=== PATIENT | female | born 1945 | race Caucasian/White ===

== ENCOUNTER 2016-10-15 15:09 | Emergency (ER) | payer OTHER ==
[2016-10-15 15:17] VITALS: BP 144/70; PULSE 74; TEMP 98.4; BMI 25.8
[2016-10-15] MEDS ORDERED: KETOROLAC TROMETHAMINE 30 MG/1 ML VIAL IM ONE (15:27)
[2016-10-15] MEDS ORDERED: KETOROLAC TROMETHAMINE 30 MG/1 ML VIAL ONE (15:34)
--- NOTE | 2016-10-15 15:35 | PDOC ---
History of Present Illness - General Chief Complaint: Pain, Acute Stated Complaint: LOW BACK PAIN Time Seen by Provider: 10/15/16 15:15 History Source: Patient Exam Limitations: No Limitations - History of Present Illness Initial Comments: 10/15/16 15:28 70 yo F with no pmhx here with /co low back painl left sided. flank. radiates down to her hip. started 4 weeks ago after went bowling. then yeterday was reaching, suddently got a spasm . no new weakness or numbness. no bowel or bladder dysfunction. pain worse with certain movement and bending. was taking aleve, and motrin 400 mg minimal relief. did see a chiropracter, no improvement. Past History - Past Medical History Allergies/Adverse Reactions: Allergies Allergy/AdvReac Type Severity Reaction Status Date / Time No Known Allergies Allergy Verified 10/15/16 15:10 Home Medications: Ambulatory Orders Diazepam [Valium] 5 mg PO Q8H PRN #15 tablet MDD 3 10/15/16 Ibuprofen [Motrin -] 600 mg PO TID PRN #60 tablet MDD 3 10/15/16 Other medical history: BREAST CANCER - Surgical History Appendectomy: Yes - Psycho/Social/Smoking Cessation Hx Suicidal Ideation: No Smoking History: Never smoked Hx Alcohol Use: Yes Drug/Substance Use Hx: No Substance Use Type: Alcohol Review of Systems - Review of Systems Constitutional: No: Chills, Diaphoresis HEENTM: No: Blurred Vision Cardiac (ROS): No: Chest Pain, Edema : No: Burning, Dysuria Musculoskeletal: Yes: Back Pain. No: Muscle Weakness Neurological: No: Numbness, Weakness All Other Systems: Reviewed and Negative *Physical Exam - Vital Signs Last Vital Signs Temp Pulse Resp BP Pulse Ox 98.4 F 74 18 144/70 100 10/15/16 15:10 10/15/16 15:10 10/15/16 15:10 10/15/16 15:10 10/15/16 15:10 - Physical Exam General Appearance: Yes: Appropriately Dressed Neck: positive: Trachea midline Respiratory/Chest: positive: Lungs Clear, Normal Breath Sounds. negative: Respiratory Distress Cardiovascular: positive: Regular Rhythm, Regular Rate, S1, S2. negative: Edema , JVD Gastrointestinal/Abdominal: positive: Normal Bowel Sounds, Flat, Soft. negative : Increased Bowel Sounds Musculoskeletal: positive: Normal Inspection, Muscle Spasm, Other (left paraspinal m spasm, no midline v body tendernss. ). negative: CVA Tenderness, Vertebral Tenderness Neurologic: positive: Fully Oriented, Alert, Normal Mood/Affect, Motor Strength 5/5, Other (5/5 bilat lower extremity strength, hip flex/ ext, knee flex / ext, DF / PF, sensation intact throughout. ) Medical Decision Making - Medical Decision Making 10/15/16 15:31 70 yo with low back strain, normal nuero exam. plan continued nsaids, and muscle relaxer pcp fu. *DC/Admit/Observation/Transfer Diagnosis at time of Disposition: Low back strain - Discharge Dispostion Disposition: HOME Condition at time of disposition: Improved Admit: No - Prescriptions Prescriptions: Ibuprofen [Motrin -] 600 mg PO TID PRN #60 tablet MDD 3 PRN Reason: Pain Diazepam [Valium] 5 mg PO Q8H PRN #15 tablet MDD 3 PRN Reason: Muscle Spasms - Patient Instructions Printed Discharge Instructions: DI for Back Strain or Sprain Additional Instructions: no heavy lifting for one week you should follow up with your primary doctor to discuss physical therapy. take ibuprofen 600 mg very 8 hours as needed for pain. take valium 5 mg every 8 hours as needed for muscle spasm. return for weakness, numbness or any bowel or bladder problems fever or any concerns. do not mix valium with alcohol. do not take before driving.
== END 2016-10-15 15:44 | disposition home or self-care (01) ==
LOC: FER 15:09
DX: S39.012A Strain of muscle, fascia and tendon of lower back, initial encounter (principal); X58.XXXA Exposure to other specified factors, initial encounter; Y93.9 Activity, unspecified; Y92.9 Unspecified place or not applicable
CPT/HCPCS: 99282-25

== ENCOUNTER 2018-02-02 08:29 | Emergency (ER) | payer OTHER ==
[2018-02-02 08:57] VITALS: BP 129/61; PULSE 83; TEMP 97.4; BMI 25.8
--- NOTE | 2018-02-02 09:00 | PDOC ---
History of Present Illness - General Chief Complaint: Back Pain Stated Complaint: R/O STONES Time Seen by Provider: 02/02/18 09:00 History Source: Patient Exam Limitations: No Limitations - History of Present Illness Initial Comments: 02/02/18 09:17 72 year old female with PMH kidney stone (30 years ago) and chronic low back pain presented to ED for left low back pain since 0500 today. She admitted to urinary urgency and increased urinary frequency since yesterday and chills. She stated she had 5 episodes of diarrhea yesterday, loose orange/brown. She denied fever, chest pain, shortness of breath, abdominal pain, bowel or bladder incontinence, numbness/tingling, hematuria, blood in stool. Allergies: NKDA Past History - Past Medical History Allergies/Adverse Reactions: Allergies Allergy/AdvReac Type Severity Reaction Status Date / Time No Known Allergies Allergy Verified 02/02/18 08:57 Home Medications: Ambulatory Orders Diazepam [Valium] 5 mg PO Q8H PRN #15 tablet MDD 3 10/15/16 Ibuprofen [Motrin -] 600 mg PO TID PRN #60 tablet MDD 3 10/15/16 Oxycodone HCl/Acetaminophen [Percocet 5-325 mg Tablet] 1 tab PO Q6H PRN #12 tablet MDD 4 tabs 02/02/18 Tamsulosin HCl [Flomax] 0.4 mg PO DAILY #7 capsule 02/02/18 COPD: No CHF: No Disorders: Yes (kidney stones) - Surgical History Appendectomy: Yes - Suicide/Smoking/Psychosocial Hx Smoking History: Never smoked Have you smoked in the past 12 months: No Information on smoking cessation initiated: No Hx Alcohol Use: No Drug/Substance Use Hx: No Substance Use Type: Alcohol Review of Systems - Review of Systems Able to Perform ROS?: Yes Comments:: 02/02/18 09:22 General: admitted to chills. denied fever, night sweats, generalized weakness. HEENT: denied sore throat, rhinorrhea, ear pain. Heart: denied chest pain, palpitations, syncope, lower extremity swelling, diaphoresis. Respiratory: denied shortness of breath, cough, sputum production, hemoptysis. Abdomen: admitted to nausea, vomiting, diarrhea. denied abdominal pain, constipation, blood in stool, bowel incontinence. : admitte to increased urinary frequency, urinary urgency. denied dysuria, hematuria, urinary incontinence. Back: admitted to back pain. Musculoskeletal: denied joint pain, joint swelling. Neurological: denied headache, dizziness, numbness, tingling, weakness. Skin: denied rash, laceration, abrasion. *Physical Exam - Vital Signs Last Vital Signs Temp Pulse Resp BP Pulse Ox 97.4 F L 83 16 129/61 100 02/02/18 08:35 02/02/18 08:35 02/02/18 08:35 02/02/18 08:35 02/02/18 08:35 - Physical Exam Comments: 02/02/18 09:23 Constitutional: Well-nourished, Well-developed, appearing stated age. HEENT: head is normocephalic, atraumatic. EOMI. PERRLA. Neck: supple. Full ROM. Heart: regular rhythm. no murmurs, rubs or gallops. Lungs: clear to auscultation bilaterally. no crackles, rhonchi or wheezing. no stridor. Abdomen: soft, nontender. normal bowel sounds. no rebound, guarding, masses. Back: no tenderness to palpation of low back bilaterally. no CVA tenderness bilaterally. Straight leg testing negative bilaterally. Extremities: Peripheral pulses intact. No lower extremity edema. Neurological: CN 2-12 grossly intact. Moves all four extremities. normal gait. ambulates well unassisted. Psych: awake, alert, oriented x3. Follows commands. Answers questions appropriately. ED Treatment Course - LABORATORY CBC & Chemistry Diagram: 02/02/18 09:38 02/02/18 09:38 Medical Decision Making - Medical Decision Making 02/02/18 09:56 72 year old female with PMH kidney stone (30 years ago) and chronic low back pain presented to ED for left low back pain associated with nausea, one episode of vomiting, increased urinary frequency, urinary urge, chills. Back pain currently 10/19. Initial Vital Signs Temp Pulse Resp BP Pulse Ox 97.4 F L 83 16 129/61 100 02/02/18 08:35 02/02/18 08:35 02/02/18 08:35 02/02/18 08:35 02/02/18 08:35 Afebrile. No tachycardia. No tachypnea. No hypertension. No hypoxia on room air. EKG performed at 1015: rate 86, regular rhythm, normal axis, normal intervals, nonspecific ST changes. Pending CBC, CMP, UA/UC, CT abdomen pelvis for evaluation of possible nephrolithiasis, UTI, diverticulitis, AAA. Pending EKG, cardiac enzymes, chest X-ray for evaluation of possible cardiopulmonary pathology. Toradol ordered for pain. Zofran ordered for nausea. 1L normal saline bolus ordered for hydration. 02/02/18 10:48 CT report: left 4mm partially obstructing renal stone at the UVJ with associated moderate hydronephrosis, hydroureter and perinephric and periureteral stranding. Flomax ordered. CXR report: negative for acute chest pathology. Pt reassessed, reported back pain improved, currently 05/19. CBC WBC 11.6 K/mm3 (4.0-10.0) H 02/02/18 09:38 RBC 4.48 M/mm3 (3.60-5.2) 02/02/18 09:38 Hgb 13.6 GM/dL (10.7-15.3) 02/02/18 09:38 Hct 38.8 % (32.4-45.2) 02/02/18 09:38 MCV 86.5 fl (80-96) 02/02/18 09:38 MCH 30.3 pg (25.7-33.7) 02/02/18 09:38 MCHC 35.0 g/dl (32.0-36.0) 02/02/18 09:38 RDW 12.8 % (11.6-15.6) 02/02/18 09:38 Plt Count 247 K/MM3 (134-434) 02/02/18 09:38 MPV 10.0 fl (7.5-11.1) 02/02/18 09:38 Absolute Neuts (auto) 9.4 K/mm3 (1.5-8.0) H 02/02/18 09:38 Neutrophils % 80.6 % (42.8-82.8) 02/02/18 09:38 Lymphocytes % 13.6 % (8-40) D 02/02/18 09:38 Monocytes % 5.2 % (3.8-10.2) 02/02/18 09:38 Eosinophils % 0.2 % (0-4.5) D 02/02/18 09:38 Basophils % 0.4 % (0-2.0) 02/02/18 09:38 Nucleated RBC % 0 % (0-0) 02/02/18 09:38 Mild leukocytosis. No anemia. CMP Sodium 140 mmol/L (136-145) 02/02/18 09:38 Potassium 3.8 mmol/L (3.5-5.1) 02/02/18 09:38 Chloride 105 mmol/L (98-107) 02/02/18 09:38 Carbon Dioxide 22 mmol/L (21-32) 02/02/18 09:38 Anion Gap 13 MMOL/L (8-16) 02/02/18 09:38 BUN 13 mg/dL (7-18) 02/02/18 09:38 Creatinine 1.0 mg/dL (0.55-1.3) 02/02/18 09:38 Creat Clearance w eGFR 54.50 (>60) 02/02/18 09:38 Random Glucose 142 mg/dL (74-106) H 02/02/18 09:38 Calcium 8.9 mg/dL (8.5-10.1) 02/02/18 09:38 Total Bilirubin 0.5 mg/dL (0.2-1) 02/02/18 09:38 AST 19 U/L (15-37) 02/02/18 09:38 ALT 25 U/L (13-61) 02/02/18 09:38 Alkaline Phosphatase 42 U/L (45-117) L 02/02/18 09:38 Creatine Kinase 92 IU/L (26-192) 02/02/18 09:38 Troponin I < 0.02 ng/ml (0.00-0.05) 02/02/18 09:38 Total Protein 7.2 g/dl (6.4-8.2) 02/02/18 09:38 Albumin 3.8 g/dl (3.4-5.0) 02/02/18 09:38 No electrolyte abnormality. No KAEL. Normal cardiac enzymes. INR, PTT INR 0.97 (0.83-1.09) 02/02/18 09:38 02/02/18 12:47 Urine Test Results Urine Color Yellow 02/02/18 11:50 Urine Appearance Slcloudy 02/02/18 11:50 Urine pH 5.0 (5.0-8.0) 02/02/18 11:50 Ur Specific [place] 1.029 (1.010-1.035) 02/02/18 11:50 Urine Protein 1+ (NEGATIVE) H 02/02/18 11:50 Urine Glucose (UA) Negative (NEGATIVE) 02/02/18 11:50 Urine Ketones Trace (NEGATIVE) H 02/02/18 11:50 Urine Blood 2+ (NEGATIVE) H 02/02/18 11:50 Urine Nitrite Negative (NEGATIVE) 02/02/18 11:50 Urine Bilirubin Negative (<2.0 mg/dL) 02/02/18 11:50 Ur Leukocyte Esterase Trace (NEGATIVE) 02/02/18 11:50 Urine Mucus Few 02/02/18 11:50 WBC = 5 No evidence of UTI. No indication for antibiotics at this time. Pt informed of return precautions, including, fever, burning with urination, increasing flank pain. Pt discharged with outpatient urology followup. *DC/Admit/Observation/Transfer Diagnosis at time of Disposition: Back pain, Kidney stone - Discharge Dispostion Disposition: HOME Condition at time of disposition: Improved Decision to Admit order: No - Prescriptions Prescriptions: Oxycodone HCl/Acetaminophen [Percocet 5-325 mg Tablet] 1 tab PO Q6H PRN #12 tablet MDD 4 tabs PRN Reason: Pain Tamsulosin HCl [Flomax] 0.4 mg PO DAILY #7 capsule - Referrals Referrals: Manjula Serrano MD [Primary Care Provider] - Dmitri Petit MD., MD [Staff Physician] - Brian Lea MD [Staff Physician] - Dedrick Pérez MD [Staff Physician] - - Patient Instructions Printed Discharge Instructions: Kidney Stones -- Adult Additional Instructions: You were seen today for back pain. You have a 4 mm kidney stone. I have sent a prescription for flomax and percocet to your pharmacy, take as advised on labels. Take ibuprofen over the counter for pain, take as advised on label. Drink lots of water over the next few days to flush the stone. I have provided you with a referral for a few urologist, call and make an appointment sunday for the soonest available appointment. Follow up with your primary care doctor in 2-3 days, your care is not complete until you follow up. Return to the Emergency Department for increasing pain, fever, chills, sweats, chest pain, lightheadedness like you may pass out, blood in urine, burning when you pee or any other new, worsening or concerning symptoms. - Post Discharge Activity Forms/Work/School Notes: Back to Work
[2018-02-02] MEDS ORDERED: SODIUM CHLORIDE 1,000 ML IV STA (09:11)
[2018-02-02] MEDS ORDERED: KETOROLAC TROMETHAMINE 30 MG/1 ML VIAL IVPUSH ONE (09:11)
[2018-02-02] MEDS ORDERED: ONDANSETRON 4 MG/2 ML VIAL IVPUSH ONE (09:11)
[2018-02-02] MEDS ORDERED: KETOROLAC TROMETHAMINE 30 MG/1 ML VIAL ONE (09:22)
[2018-02-02] MEDS ORDERED: ONDANSETRON 4 MG/2 ML VIAL ONE (09:22)
[2018-02-02 10:02] LABS: BASO % 0.4 % (0-2.0); EOS % 0.2 % (0-4.5); HEMATOCRIT 38.8 % (32.4-45.2); HEMOGLOBIN 13.6 GM/dL (10.7-15.3); LYMPH % 13.6 % (8-40); MCH 30.3 pg (25.7-33.7); MEAN CELL VOLUME 86.5 fl (80-96); MONO % 5.2 % (3.8-10.2); NEUT % 80.6 % (42.8-82.8); PLATELET COUNT 247 K/MM3 (134-434); RBC 4.48 M/mm3 (3.60-5.2); RDW 12.8 % (11.6-15.6); WHITE BLOOD COUNT 11.6 K/mm3 (4.0-10.0)
[2018-02-02 10:13] LABS: INR 0.97 (0.83-1.09); PROTHROMBIN TIME (PATIENT) 11.4 SEC (9.7-13.0)
[2018-02-02] MEDS ORDERED: TAMSULOSIN HCL 0.4 MG CAP PO ONE (10:48)
--- NOTE | 2018-02-02 10:59 | PDOC ---
Attending Attestation - Resident Resident Name: Chantell Weston - ED Attending Attestation I have performed the following: I have examined & evaluated the patient, The case was reviewed & discussed with the resident, I agree w/resident's findings & plan, Exceptions are as noted - HPI HPI: 02/02/18 10:57 72 F with h/o kidney stones, chronic LBP presenting with L lower back pain since yesterday. Pt states that it feels like previous kidney stone. Denies radiation of pain to abdomen. Denies F/C. Endorses urinary frequency but denies foul smelling urine. Endorses nausea with one episode of vomiting. No CP/SOB. - Physicial Exam PE: 02/02/18 10:59 "GENERAL: Awake, alert, and fully oriented, in no acute distress. HEAD: No signs of trauma EYES: PERRLA, EOMI, sclera anicteric, conjunctiva clear ENT: Auricles normal inspection, hearing grossly normal, nares patent, oropharynx clear without exudates. Moist mucosa NECK: Nontender, no stepoffs, Normal ROM, supple, no lymphadenopathy, JVD, or masses LUNGS: Breath sounds equal, clear to auscultation bilaterally. No wheezes, and no crackles HEART: Regular rate and rhythm, normal S1 and S2, no murmurs, rubs or gallops ABDOMEN: Soft, nontender, normoactive bowel sounds. No guarding, no rebound. No masses EXTREMITIES: Normal range of motion, no edema. No clubbing or cyanosis. No cords, erythema, or tenderness NEUROLOGICAL: Cranial nerves II through XII intact. 5/5 strength and sensation in all extremities, Normal speech, normal gait, normal cerebellar function SKIN: Warm, Dry, normal turgor, no rashes or lesions noted. - Medical Decision Making 02/02/18 10:59 72 F with L lower back pain. Possible kidney stone vs MSK pain. - Labs, UA, UCx - CTAP - IVF, pain control 02/02/18 12:16 CT shows 4mm stone at L UVJ Labs wnl pending UA 02/02/18 12:45 UA shows trace LE, 5 WBC, no nitrites Will hold on abx at this time, as pt without fevers, will f/u UCx Pt reassessed - pain is well controlled Pt is well appearing, with normal vitals. Clinically stable for DC at this time. I discussed the physical exam findings, ancillary test results and final diagnoses with the patient. I answered all of the patient's questions. The patient was satisfied with the care received and felt comfortable with the discharge plan and treatment plan. The patient agrees to follow up with the primary care physician within 24-72 hours.
[2018-02-02 11:09] LABS: ALBUMIN 3.8 g/dl (3.4-5.0); ALK PHOS 42 U/L (45-117); ANION GAP 13 MMOL/L (8-16); BILIRUBIN,TOTAL 0.5 mg/dL (0.2-1); BLOOD UREA NITROGEN 13 mg/dL (7-18); CALCIUM 8.9 mg/dL (8.5-10.1); CHLORIDE 105 mmol/L (98-107); CO2 22 mmol/L (21-32); GLUCOSE,RANDOM 142 mg/dL (74-106); POTASSIUM 3.8 mmol/L (3.5-5.1); SGOT/AST 19 U/L (15-37); SGPT/ALT 25 U/L (13-61); SODIUM 140 mmol/L (136-145); TOT PROT 7.2 g/dl (6.4-8.2)
--- NOTE | 2018-02-02 11:50 | EKG ---
Test Reason : Blood Pressure : / mmHG Vent. Rate : 086 BPM Atrial Rate : 086 BPM P-R Int : 166 ms QRS Dur : 082 ms QT Int : 408 ms P-R-T Axes : 059 -02 026 degrees QTc Int : 488 ms NORMAL SINUS RHYTHM NONSPECIFIC ST ABNORMALITY ABNORMAL ECG NO PREVIOUS ECGS AVAILABLE Confirmed by JODY KARIMI MD ([id number]) on 02/02/2018 11:50:13 AM Referred By: Confirmed By:JODY KARIMI MD
[2018-02-02] MEDS ORDERED: TAMSULOSIN HCL 0.4 MG CAP ONE (11:57)
[2018-02-02 12:30] LABS: URINE APPEARANCE SLCLOUDY; URINE BILIRUBIN NEGATIVE (<2.0 mg/dL); URINE COLOR YELLOW; URINE GLUCOSE (UA) NEGATIVE (NEGATIVE); URINE KETONE TRACE (NEGATIVE); URINE LEUK ESTERASE TRACE (NEGATIVE); URINE NITRITE NEGATIVE (NEGATIVE); URINE PROTEIN 1+ (NEGATIVE); URINE UROBILINOGEN NEGATIVE mg/dL (0.2-1.0)
[2018-02-02 12:44] LABS: CALCIUM OXALATE CRYSTALS RARE /hpf (NONE SEEN); URINE MUCUS FEW
== END 2018-02-02 13:15 | disposition home or self-care (01) ==
LOC: JER 08:29
PROC: 3E0333Z Introduction of Anti-inflammatory into Peripheral Vein, Percutaneous Approach (ICD-10-PCS; principal; 2018-02-02)
PROC: 3E033GC Introduction of Other Therapeutic Substance into Peripheral Vein, Percutaneous Approach (ICD-10-PCS; 2018-02-02)
DX: N13.2 Hydronephrosis with renal and ureteral calculous obstruction (principal)
CPT/HCPCS: 36415; 71046-TC-FY; 74176-TC; 80053; 81003; 81015; 82550; 84484; 85025; 85610; 85730; 87086; 93005; 93010; 96374; 96375; 99282-25; J7030

== ENCOUNTER 2023-04-04 11:22 | Day surgery (SDC) | payer OTHER ==
[2023-03-30 10:29] VITALS: BMI 27.4
[2023-04-04] MEDS ORDERED: LIDOCAINE 1% P/F 10 MG/ML VIAL ONE (11:30)
[2023-04-04] MEDS ORDERED: TETRACAINE 0.5% OPHTH SOLN 2 ML BOTTLE ONE (11:30)
[2023-04-04] MEDS ORDERED: NEO/POLYMYX B SULF/DEXAMETH OPHTHALMIC 5ML BOTTLE ONE ×2 (11:30→13:16)
[2023-04-04] MEDS ORDERED: CARBACHOL 0.01% INTRA-OCULAR 1.5 ML VIAL ONE ×2 (11:30→12:30)
[2023-04-04] MEDS ORDERED: BSS (NA/CA/MG/K) BALANCED SALT SOLUTION OPHTH SOLN 15 ML BOTTLE ONE (11:30)
[2023-04-04] MEDS: CIPROFLOXACIN 0.3% EYE DROPS 5 ML BOTTLE ONE ×3 (11:55→12:05)
[2023-04-04] MEDS: PHENYLEPHRINE 2.5% OPTHALMIC DROP 2ML BOTTLE ONE ×3 (11:55→12:05)
[2023-04-04] MEDS: CYCLOPENTOLATE 2% OPHTH SOLN 2 ML BOTTLE ONE ×3 (11:55→12:05)
[2023-04-04] MEDS: TROPICAMIDE 1% OPHTH SOLN 15 ML BOTTLE ONE ×3 (11:55→12:05)
[2023-04-04] MEDS ORDERED: MIDAZOLAM HCL 2 MG/2 ML SINGLE DOSE VIAL ONE ×2 (13:28→13:35)
[2023-04-04 14:13] VITALS: RESP 18; TEMP 97.5
[2023-04-04 14:29] VITALS: BP 126/68; PULSE 84
== END 2023-04-04 14:31 | disposition home or self-care (01) ==
LOC: FASU 11:22
PROVIDERS: ATTEND Ophthalmology
PROC: 08RK3JZ Replacement of Left Lens with Synthetic Substitute, Percutaneous Approach (ICD-10-PCS; principal; 2023-04-04 13:37)
DX: H26.8 Other specified cataract (principal)
CPT/HCPCS: 66984; V2632

== ENCOUNTER 2023-04-18 07:29 | Day surgery (SDC) | payer OTHER ==
[2023-04-13 10:32] VITALS: BMI 27.4
[2023-04-18] MEDS: PHENYLEPHRINE 2.5% OPTHALMIC DROP 2ML BOTTLE ONE (07:55)
[2023-04-18] MEDS: CIPROFLOXACIN 0.3% EYE DROPS 5 ML BOTTLE ONE (07:55)
[2023-04-18] MEDS: TROPICAMIDE 1% OPHTH SOLN 15 ML BOTTLE ONE (07:55)
[2023-04-18] MEDS: CYCLOPENTOLATE 2% OPHTH SOLN 2 ML BOTTLE ONE (07:55)
[2023-04-18] MEDS: CIPROFLOXACIN 0.3% EYE DROPS 5 ML BOTTLE OD ONE (08:05)
[2023-04-18] MEDS ORDERED: BSS (NA/CA/MG/K) BALANCED SALT SOLUTION OPHTH SOLN 15 ML BOTTLE ONE (08:22)
[2023-04-18] MEDS ORDERED: LIDOCAINE 1% P/F 10 MG/ML VIAL ONE (08:22)
[2023-04-18] MEDS ORDERED: TETRACAINE 0.5% OPHTH SOLN 2 ML BOTTLE ONE (08:22)
[2023-04-18] MEDS ORDERED: CARBACHOL 0.01% INTRA-OCULAR 1.5 ML VIAL ONE (08:22)
[2023-04-18] MEDS ORDERED: NEO/POLYMYX B SULF/DEXAMETH OPHTHALMIC 5ML BOTTLE ONE (08:22)
[2023-04-18] MEDS ORDERED: MIDAZOLAM HCL 2 MG/2 ML SINGLE DOSE VIAL ONE ×2 (09:16→09:22)
[2023-04-18 10:08] VITALS: TEMP 97.8
[2023-04-18 10:11] VITALS: BP 106/68; PULSE 74; RESP 18
== END 2023-04-18 10:25 | disposition home or self-care (01) ==
LOC: FASU 07:29
PROVIDERS: ATTEND Ophthalmology
PROC: 08RJ3JZ Replacement of Right Lens with Synthetic Substitute, Percutaneous Approach (ICD-10-PCS; principal; 2023-04-18 09:27)
DX: H26.8 Other specified cataract (principal)
CPT/HCPCS: 66984; V2632